=== PATIENT | male | born 1950 | race Caucasian/White ===

== ENCOUNTER 2019-05-07 11:53 | Inpatient (IN) | payer MEDICARE, OTHER ==
[~2019-05-07] VITALS: Ht 180.3 cm; Wt 55.6 kg
[~2019-05-07 11:53] MED LIST: CEFU250T PO; HYDR10TA PO; LEVO125T PO; SIMV20TA3 PO
[2019-05-07 12:23] LABS: BASOPHILS # (AUTO) 0.04 x10^3/uL (0-0.1); BASOPHILS % (AUTO) 1 % (0-1); EOSINOPHILS % (AUTO) 0 % (1-7); LYMPHOCYTES # (AUTO) 2.09 x10^3/uL (1-3.4); LYMPHOCYTES % (AUTO) 28 % (22-44); MD NO; MEAN CORPUSCULAR HEMOGLOBIN 29.1 pg (27.5-34.5); MEAN CORPUSCULAR HGB CONC 33.2 g/dL (33.2-36.2); MEAN CORPUSCULAR VOLUME 87.7 fL (81-97); MEAN PLATELET VOLUME 9.8 fL (7.4-10.4); MONOCYTES # (AUTO) 0.68 x10^3/uL (0.2-0.8); MONOCYTES % (AUTO) 9 % (2-9); NEUTROPHILS # (AUTO) 4.62 x10^3/uL (1.8-6.8); NEUTROPHILS % (AUTO) 62 % (42-75); PLATELET COUNT 121 x10^3/uL (130-400); RED CELL DISTRIBUTION WIDTH 13.8 % (9.4-14.8)
[2019-05-07 12:34] LABS: ALANINE AMINOTRANSFERASE 22 U/L (12-78); ALBUMIN 3.9 g/dL (3.4-5.0); ANION GAP 11 mmol/L (5-15); CALCIUM 8.7 mg/dL (8.5-10.1); CHLORIDE 104 mmol/L (98-107); CREATININE 1.85 mg/dL (0.7-1.3)
[2019-05-07 12:36] LABS: ALKALINE PHOSPHATASE 50 U/L (45-117)
[2019-05-07] MEDS ORDERED: SODIUM CHLORIDE 0.9% 1,000ML IVBOLUS ONE (13:00)
--- NOTE | 2019-05-07 13:35 | NUR ---
LATE ENTRY FOR 1315: PT GIVEN SHEET. PER REPORT FROM SADAF BRYANT, PT WAS MOVED TO 17. PT HAD A MUCUS PLUG IN TRACH. CHARLENE IN BY EMS. WADEN. PT ABLE TO MOVE AROUND IN [facility] WITHOUT ASSISTANCE.
--- NOTE | 2019-05-07 13:35 | NUR ---
TASK RN: BEDSIDE REPORT TO SADAF VALDES.
--- NOTE | 2019-05-07 13:50 | NUR ---
TASK RN: PT RESTING ON MING. ALIYAH. VSS. PERINEAL CARE PERFORMED ON PT. WARM BLANKET PROVIDED. PT REPOSITIONED FOR COMFORT.
--- NOTE | 2019-05-07 14:08 | NUR ---
TASK RN: REPORT GIVEN TO [facility], RECEIVING RN. ALL QUESTIONS ANSWERED. AWAITING PT TRANSPORT.
--- NOTE | 2019-05-07 14:37 | NUR ---
1L NS STARTED PER EMAR.
--- NOTE | 2019-05-07 14:43 | NUR ---
TRACH TO BE CHANGED IN ED. WAITING TO TRANSFER.
--- NOTE | 2019-05-07 15:27 | NUR ---
PATIENT TRANSFERED TO FLOOR.
[2019-05-07 15:36] VITALS: BP 112/63
[2019-05-07] MEDS ORDERED: VANCOMYCIN PER PHARMACY MC PRN (17:00)
[2019-05-07] MEDS ORDERED: ACETAMINOPHEN 325 MG TABLET PO PRN (17:00)
[2019-05-07] MEDS ORDERED: ONDANSETRON 2MG/ML, 2ML IVPush PRN (17:00)
[2019-05-07] MEDS ORDERED: MORPHINE SULFATE 4 MG/ML, 1ML IVPush PRN (17:00)
[2019-05-07] MEDS ORDERED: PHARMACOKINETIC MONITORING MC PRN (17:30)
[2019-05-07] MEDS ORDERED: VANCOMYCIN PMX 1GM/200ML 200 ML IVPB SCH (18:00)
[2019-05-07] MEDS: PIPERACILLIN/TAZO/PMX 2.25GM 50 ML IV SCH (19:53)
[2019-05-07 20:07] VITALS: BP 98/61
[2019-05-07 20:19] LABS: RAPID INFLUENZA B Negative (Negative)
[2019-05-07 20:24] LABS: RAPID INFLUENZA A POSITIVE (Negative)
[2019-05-07] MEDS ORDERED: OSELTAMIVIR 30 MG CAPSULE PO SCH (21:00)
[2019-05-07 21:09] LABS: CLOSTRIDIUM DIFFICILE ANTIGEN NEGATIVE; CLOSTRIDIUM DIFFICILE TOXIN NEGATIVE (Negative)
[2019-05-07] MEDS: OSELTAMIVIR 30 MG CAPSULE PO SCH (22:07)
[2019-05-08] MEDS ORDERED: DIPHENHYDRAMINE 50 MG/ML, 1ML IVPush ONE (01:30)
[2019-05-08 02:00] VITALS: BP 106/69
[2019-05-08] MEDS: PIPERACILLIN/TAZO/PMX 2.25GM 50 ML IV SCH ×3 (03:35→20:07)
[2019-05-08 05:50] LABS: ANION GAP 8 mmol/L (5-15); CHLORIDE 106 mmol/L (98-107); CREATININE 1.51 mg/dL (0.7-1.3)
[2019-05-08 06:01] LABS: MEAN CORPUSCULAR HEMOGLOBIN 29.2 pg (27.5-34.5); MEAN CORPUSCULAR HGB CONC 33.8 g/dL (33.2-36.2); MEAN CORPUSCULAR VOLUME 86.3 fL (81-97); MEAN PLATELET VOLUME 9.5 fL (7.4-10.4); PLATELET COUNT 99 x10^3/uL (130-400); RED BLOOD COUNT 4.92 x10^6/uL (4.38-5.82)
[2019-05-08 06:33] LABS: BASOPHILS # (AUTO) 0.02 x10^3/uL (0-0.1); BASOPHILS % (AUTO) 0 % (0-1); EOSINOPHILS # (AUTO) 0.09 x10^3/uL (0-0.4); EOSINOPHILS % (AUTO) 2 % (1-7); LYMPHOCYTES # (AUTO) 1.46 x10^3/uL (1-3.4); LYMPHOCYTES % (AUTO) 23 % (22-44); MD SCAN; MONOCYTES # (AUTO) 0.64 x10^3/uL (0.2-0.8); MONOCYTES % (AUTO) 10 % (2-9); NEUTROPHILS # (AUTO) 4.03 x10^3/uL (1.8-6.8); NEUTROPHILS % (AUTO) 65 % (42-75)
[2019-05-08 08:47] VITALS: BP 100/66
[2019-05-08] MEDS: OSELTAMIVIR 30 MG CAPSULE PO SCH ×2 (10:00→20:07)
--- NOTE | 2019-05-08 11:44 | NUR ---
REC THIN LIQUIDS ONLY, SECONDARY TO PATIENT DECLINING FURTHER TEXTURES. WILL FOLLOW FOR ASSESSMENT FOR UPGRADE. Addendum: 05/08/19 at 1145 by Juliette HINES Amended: Links added.
[2019-05-08 11:49] VITALS: BP 118/75
[2019-05-08] MEDS ORDERED: SODIUM CHLORIDE 0.9% 1,000 ML IV SCH (17:30)
[2019-05-08] MEDS: SODIUM CHLORIDE 0.9% 1,000 ML IV SCH (17:45)
[2019-05-08] MEDS ORDERED: VANCOMYCIN 1,000 MG in SODIUM CHLORIDE 0.9% 100 ML IV SCH (18:00)
[2019-05-08 19:56] VITALS: BP 119/73
[2019-05-08] MEDS: HYDROCORTISONE 5 MG TABLET PO SCH (20:08)
[2019-05-09 01:18] VITALS: BP 115/74
[2019-05-09] MEDS: PIPERACILLIN/TAZO/PMX 2.25GM 50 ML IV SCH ×2 (01:42→10:12)
[2019-05-09 06:37] VITALS: BP 93/60
[2019-05-09 09:01] LABS: BASOPHILS # (AUTO) 0.02 x10^3/uL (0-0.1); BASOPHILS % (AUTO) 1 % (0-1); EOSINOPHILS # (AUTO) 0.12 x10^3/uL (0-0.4); EOSINOPHILS % (AUTO) 3 % (1-7); LYMPHOCYTES # (AUTO) 0.93 x10^3/uL (1-3.4); LYMPHOCYTES % (AUTO) 24 % (22-44); MD SCAN; MEAN CORPUSCULAR HEMOGLOBIN 28.6 pg (27.5-34.5); MEAN CORPUSCULAR HGB CONC 33.3 g/dL (33.2-36.2); MEAN CORPUSCULAR VOLUME 86.1 fL (81-97); MEAN PLATELET VOLUME 9.4 fL (7.4-10.4); MONOCYTES # (AUTO) 0.26 x10^3/uL (0.2-0.8); MONOCYTES % (AUTO) 7 % (2-9); NEUTROPHILS # (AUTO) 2.49 x10^3/uL (1.8-6.8); NEUTROPHILS % (AUTO) 65 % (42-75); PLATELET COUNT 99 x10^3/uL (130-400); RED BLOOD COUNT 4.83 x10^6/uL (4.38-5.82); RED CELL DISTRIBUTION WIDTH 13.9 % (9.4-14.8)
[2019-05-09 09:03] LABS: ANION GAP 6 mmol/L (5-15); CALCIUM 7.6 mg/dL (8.5-10.1); CHLORIDE 110 mmol/L (98-107); CREATININE 1.25 mg/dL (0.7-1.3)
[2019-05-09] MEDS: HYDROCORTISONE 5 MG TABLET PO SCH ×2 (10:12→20:11)
[2019-05-09] MEDS: OSELTAMIVIR 30 MG CAPSULE PO SCH ×2 (10:12→20:10)
[2019-05-09] MEDS: SODIUM CHLORIDE 0.9% 1,000 ML IV SCH (10:12)
[2019-05-09 14:29] VITALS: BP 95/60
--- NOTE | 2019-05-09 15:15 | NUR ---
REC REGULAR/THIN LIQUIDS; ORANGE SHEET WITH DIET RECS AND SWALLOW STRATEGIES POSTED AT BEDSIDE. Addendum: 05/09/19 at 1516 by Juliette HINES Amended: Links added.
[2019-05-09] MEDS ORDERED: VANCOMYCIN PMX 1GM/200ML 200 ML IVPB SCH (18:00)
[2019-05-09 18:38] VITALS: BP 110/68
[2019-05-09] MEDS: HEPARIN 5,000 UNITS/ML, 1ML SQ SCH ×2 (18:54→20:11)
[2019-05-09] MEDS: PIPERACILLIN/TAZO/PMX 3.375GM 50 ML IV SCH (20:10)
[2019-05-10 00:09] VITALS: BP 108/61
[2019-05-10] MEDS: SODIUM CHLORIDE 0.9% 1,000 ML IV SCH ×2 (01:00→16:00)
[2019-05-10] MEDS: PIPERACILLIN/TAZO/PMX 3.375GM 50 ML IV SCH ×3 (02:07→15:20)
[2019-05-10 06:11] LABS: CALCIUM 7.6 mg/dL (8.5-10.1); CHLORIDE 112 mmol/L (98-107)
[2019-05-10 06:13] LABS: ANION GAP 4 mmol/L (5-15); CREATININE 1.06 mg/dL (0.7-1.3)
[2019-05-10 07:33] LABS: MEAN CORPUSCULAR HEMOGLOBIN 29.1 pg (27.5-34.5); MEAN CORPUSCULAR VOLUME 85.6 fL (81-97); MEAN PLATELET VOLUME 9.8 fL (7.4-10.4); PLATELET COUNT 86 x10^3/uL (130-400); RED BLOOD COUNT 4.44 x10^6/uL (4.38-5.82); RED CELL DISTRIBUTION WIDTH 13.8 % (9.4-14.8)
[2019-05-10 07:34] LABS: BASOPHILS # (AUTO) 0.01 x10^3/uL (0-0.1); BASOPHILS % (AUTO) 0 % (0-1); EOSINOPHILS # (AUTO) 0.13 x10^3/uL (0-0.4); EOSINOPHILS % (AUTO) 3 % (1-7); LYMPHOCYTES # (AUTO) 1.09 x10^3/uL (1-3.4); LYMPHOCYTES % (AUTO) 27 % (22-44); MD SCAN; MONOCYTES # (AUTO) 0.26 x10^3/uL (0.2-0.8); MONOCYTES % (AUTO) 6 % (2-9); NEUTROPHILS # (AUTO) 2.59 x10^3/uL (1.8-6.8); NEUTROPHILS % (AUTO) 64 % (42-75)
[2019-05-10 07:35] VITALS: BP 118/67
[2019-05-10] MEDS: OSELTAMIVIR 30 MG CAPSULE PO SCH (09:04)
[2019-05-10] MEDS: HEPARIN 5,000 UNITS/ML, 1ML SQ SCH (09:04)
[2019-05-10] MEDS: HYDROCORTISONE 5 MG TABLET PO SCH (09:04)
[2019-05-10 12:06] VITALS: BP 109/74
[2019-05-10] MEDS ORDERED: VANCOMYCIN PMX 1GM/200ML 200 ML IVPB SCH (13:00)
[2019-05-10] MEDS ORDERED: AZIT500T10 PO (15:56)
[2019-05-10] MEDS ORDERED: CEFI400C PO (15:56)
[2019-05-10] MEDS ORDERED: OSEL30CA2 PO (15:56)
== END 2019-05-10 18:54 | disposition home or self-care (01) | DRG 871 ==
LOC: ED 13:36 → EDIP 13:37 → ED 13:49 → 3N 14:40
PROVIDERS: ADMIT Internal Medicine; ATTEND Hospitalist
DX: A41.9 Sepsis, unspecified organism (principal); J10.00 Influenza due to other identified influenza virus with unspecified type of pneumonia; J96.01 Acute respiratory failure with hypoxia; J12.89 Other viral pneumonia; T17.490A Other foreign object in trachea causing asphyxiation, initial encounter; N17.9 Acute kidney failure, unspecified; J95.09 Other tracheostomy complication; D69.6 Thrombocytopenia, unspecified; Y83.8 Other surgical procedures as the cause of abnormal reaction of the patient, or of later complication, without mention of misadventure at the time of the procedure
CPT/HCPCS: 36415; 71045; 80048; 80053; 80202; 83690; 83735; 84100; 84145; 85025; 87040; 87046; 87070; 87205; 87324; 87400; 87427; 87633; 87806; 89055; 93005; 99285; G0378; J1644; J2405; J2543; J3370; G0475; J1200; J7030